=== PATIENT | female | born 1950 | race Caucasian/White ===

== ENCOUNTER → 2023-08-17 10:59 | Outpatient (REF) | payer MEDICARE, BC, SELFPAY | LOC: RAD 10:59 | PROVIDERS: ATTENDING PHYSICIAN Internal Medicine Rheumatology; FAMILY PHYSICIAN Emergency Medicine | DX: M05.89 Other rheumatoid arthritis with rheumatoid factor of multiple sites (principal) | CPT/HCPCS: 73560; 73565 ==

== ENCOUNTER → 2024-06-28 09:00 | Outpatient (REF) | payer MEDICARE, BC, SELFPAY | LOC: HWRAD 09:00 | PROVIDERS: ATTENDING PHYSICIAN Emergency Medicine | DX: Z12.31 Encounter for screening mammogram for malignant neoplasm of breast (principal); Z87.39 Personal history of other diseases of the musculoskeletal system and connective tissue; M85.88 Other specified disorders of bone density and structure, other site | CPT/HCPCS: 77080 ==

== ENCOUNTER 2024-12-27 06:18 | Day surgery (SDC) | payer MEDICARE, BC, SELFPAY | END 2024-12-27 08:51 | disposition home or self-care (01) | LOC: GI 06:18 | PROVIDERS: ATTENDING PHYSICIAN Internal Medicine | DX: Z12.11 Encounter for screening for malignant neoplasm of colon (principal); K63.5 Polyp of colon; K57.30 Diverticulosis of large intestine without perforation or abscess without bleeding; Q43.8 Other specified congenital malformations of intestine; Z86.0100 Personal history of colon polyps, unspecified | CPT/HCPCS: 45380; 88305 ==